=== PATIENT | male | born 1940 | race Caucasian/White ===

== ENCOUNTER → 2016-05-29 | Outpatient (CLI) | payer MEDICARE | LOC: PCVCCLINIC 13:00 | PROVIDERS: ATTEND Internal Medicine Cardiovascular Disease | DX: I10 Essential (primary) hypertension (principal); R55 Syncope and collapse; I48.91 Unspecified atrial fibrillation; I25.10 Atherosclerotic heart disease of native coronary artery without angina pectoris; E78.00 Pure hypercholesterolemia, unspecified | CPT/HCPCS: 93005; G0463 ==

== ENCOUNTER → 2016-12-15 | Outpatient (CLI) | payer MEDICARE | END | disposition home or self-care (01) | LOC: PCVCCLINIC 13:07 | PROVIDERS: ATTEND Internal Medicine Cardiovascular Disease | DX: I45.10 Unspecified right bundle-branch block (principal); I25.10 Atherosclerotic heart disease of native coronary artery without angina pectoris; E78.00 Pure hypercholesterolemia, unspecified; I10 Essential (primary) hypertension; I77.89 Other specified disorders of arteries and arterioles; K21.9 Gastro-esophageal reflux disease without esophagitis; E78.5 Hyperlipidemia, unspecified; I48.0 Paroxysmal atrial fibrillation; Z96.651 Presence of right artificial knee joint; Z87.891 Personal history of nicotine dependence; Z79.82 Long term (current) use of aspirin; Z88.8 Allergy status to other drugs, medicaments and biological substances | CPT/HCPCS: 93005; G0463 ==

== ENCOUNTER → 2016-12-17 | Outpatient (CLI) | payer MEDICARE ==
--- NOTE | 2016-12-17 13:21 | PCVCIMAG ---
APPROVED REPORT Exam: Stress Echocardiogram Indication: Afilb, Hypertension, Hyperlipidemia Stress Nurse: Alice Vargas RN Status: routine HR: 85 bpm Rhythm: NSR Procedure The patient underwent an Exercise Stress Test using the Luis Protocol. Blood pressure, heart rate, and EKG were monitored. An Echocardiogram was performed by instrumentation and control technician in four stages in quad fashion. At peak stress, four selected images were obtained and placed side by side with resting images for comparison. Stress Test Details Stress Test: Exercise stress testing was performed using a Luis protocol. HR Resting HR: 85 bpmMax Heart Rate (APMHR): 145 bpm Max HR Achieved: 164 bpmTarget HR (85% APMHR): 123 bpm % of APMHR: 113 HR response to stress: Normal HR response to stress BP Resting BP: 85/ mmHg Max BP: 178/92 mmHg ECG Resting ECG: Atrial Fibrillation Stress ECG: Atrial Fibrillation Recovery ECG: Atrial Fibrillation Clinical Reason for Termination: Maximal effort Exercise duration: 6 min 57 sec Highest Stage Achieved: Stage 2: 2.5 mph at 12% grade. Exercise capacity: 9.90 METs Pre-Stress Echo The resting Echocardiogram showed normal left ventricular contractility with an estimated Ejection Fraction of about 50-55%. Normal wall motion in all segments on baseline images. Post-Stress Echo The stress Echocardiogram showed normal left ventricular contractility with an estimated Ejection Fraction of about >55%. Normal augmentation of wall motion in all segments on post stress images. Conclusion Clinical Response: Non-ischemic Exercise Capacity: Average Stress ECG Response: Indeterminant Stress Echo Images: Non-ischemic The left ventricle is normal in size and wall thickness in both the rest and stress images. No clinical, EKG or echocardiographic evidence for ischemia. Normal stress echocardiogram with maximal exercise stress. Other Information Study Quality: Technically Limited <Conclusion> The left ventricle is normal in size and wall thickness in both the rest and stress images. No clinical, EKG or echocardiographic evidence for ischemia. Normal stress echocardiogram with maximal exercise stress.
== END | disposition home or self-care (01) ==
LOC: PCVCIMAG 11:11
PROVIDERS: ATTEND Internal Medicine Cardiovascular Disease
DX: I48.91 Unspecified atrial fibrillation (principal); I25.10 Atherosclerotic heart disease of native coronary artery without angina pectoris; I10 Essential (primary) hypertension; E78.5 Hyperlipidemia, unspecified; E78.00 Pure hypercholesterolemia, unspecified; I77.89 Other specified disorders of arteries and arterioles
CPT/HCPCS: 93325; 93351

== ENCOUNTER → 2017-06-07 | Outpatient (CLI) | payer MEDICARE | END | disposition home or self-care (01) | LOC: PCVCCLINIC 15:35 | DX: Z51.81 Encounter for therapeutic drug level monitoring (principal); I48.2 Chronic atrial fibrillation; I25.10 Atherosclerotic heart disease of native coronary artery without angina pectoris; I10 Essential (primary) hypertension; E78.00 Pure hypercholesterolemia, unspecified; Z87.891 Personal history of nicotine dependence; Z79.82 Long term (current) use of aspirin; Z79.899 Other long term (current) drug therapy | CPT/HCPCS: 93005; G0463 ==

== ENCOUNTER → 2017-07-19 | Outpatient (CLI) | payer MEDICARE | END | disposition home or self-care (01) | LOC: PCVCCLINIC 14:21 | DX: I48.2 Chronic atrial fibrillation (principal); I10 Essential (primary) hypertension; I25.10 Atherosclerotic heart disease of native coronary artery without angina pectoris; G47.33 Obstructive sleep apnea (adult) (pediatric); Z87.891 Personal history of nicotine dependence; Z79.899 Other long term (current) drug therapy; Z79.82 Long term (current) use of aspirin | CPT/HCPCS: 93005; G0463 ==

== ENCOUNTER → 2017-11-25 | Outpatient (CLI) | payer MEDICARE | END | disposition home or self-care (01) | LOC: PCVCCLINIC 14:30 | DX: I48.2 Chronic atrial fibrillation (principal); I10 Essential (primary) hypertension; G47.33 Obstructive sleep apnea (adult) (pediatric); I77.9 Disorder of arteries and arterioles, unspecified; R53.83 Other fatigue; R93.1 Abnormal findings on diagnostic imaging of heart and coronary circulation; R94.31 Abnormal electrocardiogram [ECG] [EKG]; Z87.891 Personal history of nicotine dependence; Z88.8 Allergy status to other drugs, medicaments and biological substances; Z79.01 Long term (current) use of anticoagulants; Z79.82 Long term (current) use of aspirin | CPT/HCPCS: 80061; 93005; G0463 ==

== ENCOUNTER → 2017-11-29 | Outpatient (CLI) | payer MEDICARE | END | disposition home or self-care (01) | LOC: PCVCIMAG 16:24 | DX: I48.91 Unspecified atrial fibrillation (principal); I10 Essential (primary) hypertension; E83.59 Other disorders of calcium metabolism | CPT/HCPCS: 93325; 93351 ==

== ENCOUNTER → 2018-06-01 | Outpatient (CLI) | payer MEDICARE | END | disposition home or self-care (01) | LOC: PCVCCLINIC 11:42 | PROVIDERS: ATTEND Internal Medicine Cardiovascular Disease | DX: I48.2 Chronic atrial fibrillation (principal); I25.10 Atherosclerotic heart disease of native coronary artery without angina pectoris; I77.9 Disorder of arteries and arterioles, unspecified; E78.00 Pure hypercholesterolemia, unspecified; I10 Essential (primary) hypertension; K21.9 Gastro-esophageal reflux disease without esophagitis; G47.33 Obstructive sleep apnea (adult) (pediatric); E78.5 Hyperlipidemia, unspecified; Z87.891 Personal history of nicotine dependence; Z88.8 Allergy status to other drugs, medicaments and biological substances | CPT/HCPCS: 93005; G0463 ==

== ENCOUNTER → 2018-06-27 | Outpatient (CLI) | payer MEDICARE | END | disposition home or self-care (01) | LOC: PCVCCLINIC 10:27 | PROVIDERS: ATTEND Internal Medicine Cardiovascular Disease | DX: I48.2 Chronic atrial fibrillation (principal); I10 Essential (primary) hypertension; E78.00 Pure hypercholesterolemia, unspecified; I77.9 Disorder of arteries and arterioles, unspecified; I25.10 Atherosclerotic heart disease of native coronary artery without angina pectoris; G47.33 Obstructive sleep apnea (adult) (pediatric); R94.31 Abnormal electrocardiogram [ECG] [EKG]; Z79.01 Long term (current) use of anticoagulants; Z79.82 Long term (current) use of aspirin | CPT/HCPCS: 93005; G0463 ==

== ENCOUNTER → 2018-06-27 | Outpatient (CLI) | payer MEDICARE ==
--- NOTE | 2018-06-27 13:18 | PCVCIMAG ---
APPROVED REPORT Study performed: 06/27/2018 10:49:27 EXAM: Limited 2D, Doppler, and color-flow Echocardiogram Patient Location: Echo lab Status: routine BSA: 2.35 HR: 72 bpmBP: 138/88 mmHg Rhythm: Atrial Fibrillation Indications Atrial Fibrillation Dyspnea assess right side volume and PAP 2D Dimensions IVSd: 16.87 (7-11mm) LVDd: 44.65 mm PWd: 12.92 (7-11mm) LVDs: 31.73 (25-40mm) Tricuspid Valve TR Peak Ruperto.: 3.61 m/s TR Peak Gr.: 52.22 mmHg Left Ventricle The left ventricle is normal size. There is normal LV segmental wall motion. Moderate concentric left ventricular hypertrophy. The left ventricular systolic function is normal. The left ventricular ejection fraction is within the normal range. LVEF is 55%. This study is not technically sufficient to allow evaluation of the LV diastolic function due to atrial fibrillation. Right Ventricle Right ventricle is borderline dilated. The right ventricular systolic function is normal. Atria Left atrium is severely dilated. Right atrium is severely dilated. Aortic Valve Mild aortic valve sclerosis. Trace aortic regurgitation. There is no aortic valvular stenosis. Mitral Valve The mitral valve is normal in structure. Moderate mitral regurgitation. No evidence of mitral valve stenosis. Tricuspid Valve The tricuspid valve is normal in structure. Moderate tricuspid regurgitation with PAP of 62 mmHg. Pulmonic Valve The pulmonary valve is normal in structure. There is no pulmonic valvular regurgitation. Great Vessels The aortic root is normal in size. IVC is normal in size and collapses <50% with inspiration. Pericardium There is no pericardial effusion. There is no pleural effusion. <Conclusion> The left ventricle is normal size. LVEF is 55%. This study is not technically sufficient to allow evaluation of the LV diastolic function due to atrial fibrillation. Right ventricle is borderline dilated. The right ventricular systolic function is normal. Left atrium is severely dilated. Right atrium is severely dilated. Mild aortic valve sclerosis. Trace aortic regurgitation. Moderate mitral regurgitation. Moderate tricuspid regurgitation with PAP of 62 mmHg. The aortic root is normal in size. There is no pericardial effusion. There is no pleural effusion.
== END | disposition home or self-care (01) ==
LOC: PCVCIMAG 10:48
PROVIDERS: ATTEND Internal Medicine Cardiovascular Disease
DX: I08.3 Combined rheumatic disorders of mitral, aortic and tricuspid valves (principal); I25.10 Atherosclerotic heart disease of native coronary artery without angina pectoris; I48.2 Chronic atrial fibrillation; I77.9 Disorder of arteries and arterioles, unspecified; I10 Essential (primary) hypertension; G47.33 Obstructive sleep apnea (adult) (pediatric); E78.00 Pure hypercholesterolemia, unspecified; R06.02 Shortness of breath; R60.9 Edema, unspecified; K21.9 Gastro-esophageal reflux disease without esophagitis; Z79.01 Long term (current) use of anticoagulants; Z79.82 Long term (current) use of aspirin; Z87.891 Personal history of nicotine dependence
CPT/HCPCS: 93005; 93308; G0463

== ENCOUNTER → 2018-09-20 | Outpatient (CLI) | payer MEDICARE ==
--- NOTE | 2018-09-20 09:08 | PCVCIMAG ---
EXAM: BILATERAL LOWER EXTREMITY ARTERIAL DUPLEX INDICATION: Peripheral Arterial Disease. Leg pain. FINDINGS: Right Leg: Common femoral and profunda femoral arteries are patent. Superficial femoral artery and popliteal artery are patent. Anterior and posterior tibial arteries are patent. Occlusion of the distal peroneal artery. Left Leg: Satisfactory arterial waveforms throughout the common/profunda/superficial femoral, popliteal, anterior tibial, peroneal, and posterior tibial arteries. No flow limiting stenosis seen. 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 Otherwise no flow limiting stenosis in the right lower extremity. No flow limiting stenosis in the left lower extremity. LOC:[id number]
== END | disposition home or self-care (01) ==
LOC: PCVCIMAG 10:16
PROVIDERS: ATTEND Internal Medicine Cardiovascular Disease
DX: I73.9 Peripheral vascular disease, unspecified (principal)
CPT/HCPCS: 93925

== ENCOUNTER → 2018-12-12 | Outpatient (CLI) | payer MEDICARE ==
--- NOTE | 2018-12-12 11:47 | PCVCIMAG ---
EXAM: BILATERAL RENAL ULTRASOUND AND BILATERAL RENAL DUPLEX INDICATION: Hypertension FINDINGS: Right kidney: Length measures 12.7 cm. No hydronephrosis or extensive renal scarring. Right renal duplex: Adequate technical quality. No sonographic evidence of renal artery stenosis. The aortic to renal artery ratio is 0.5. The renal vein is patent. Left kidney: Length measures 12.1 cm. No hydronephrosis or extensive renal scarring. Left renal duplex: Adequate technical quality. No sonographic evidence of renal artery stenosis. The aortic to renal artery ratio is 0.7. The renal vein is patent. Bladder: No obvious abnormalities. IMPRESSION: No significant renal artery stenosis. No hydronephrosis bilaterally. LOC:[id number]
--- NOTE | 2018-12-12 13:09 | PCVCIMAG ---
APPROVED REPORT Study performed: 12/12/2018 10:49:56 Exam: Stress Echocardiogram Indication: Atrial Fibrillation, mild-moderate cad, dyspnea Patient Location: Echo lab Stress Nurse: Kathy Sotelo RN Status: routine Ht: 6 ft 0 in HR: 100 bpm BP: 136/92 mmHg Rhythm: Atrial Fibrillation Procedure The patient underwent an Exercise Stress Test using the Luis Protocol. Blood pressure, heart rate, and EKG were monitored. An Echocardiogram was performed by master automotive glass technician in four stages in quad fashion. At peak stress, four selected images were obtained and placed side by side with resting images for comparison. Stress Test Details Stress Test: Exercise stress testing was performed using a Luis protocol. HR Resting HR: 100 bpmMax Heart Rate (APMHR): 143 bpm Max HR Achieved: 139 bpmTarget HR (85% APMHR): 121 bpm % of APMHR: 97 Recovery HR: 108 bpm HR response to stress: Normal HR response to stress BP Resting BP: 136/92 mmHg Max BP: 162/88 mmHg Recovery BP: 150/88 mmHg BP response to stress: Normal blood pressure response to stress. ECG Resting ECG: Atrial Fibrillation Stress ECG: Atrial Fibrillation ST Change: Normal Arrhythmia: Atrial fibrillation Recovery ECG: Atrial Fibrillation Recovery ST Change: Normal Recovery Arrhythmia: Atrial Fibrillation Clinical Reason for Termination: Dyspnea, Maximal effort Stress Symptoms: Dyspnea Exercise duration: 3 min 33 sec Highest Stage Achieved: Stage 2: 2.5 mph at 12% grade. Exercise capacity: 5.9 METs Overall Exercise Capacity for Age: Poor Scale: Active Angina Score: None Pre-Stress Echo The resting Echocardiogram showed normal left ventricular contractility with an estimated Ejection Fraction of about 50-55%. Normal wall motion in all segments on baseline images. Post-Stress Echo The stress Echocardiogram showed normal left ventricular contractility with an estimated Ejection Fraction of about 60-65%. Normal augmentation of wall motion in all segments on post stress images. Clinical No clinical or ECG evidence for ischemia. Conclusion Clinical Response: Non-ischemic Exercise Capacity: Below Average Stress ECG Response: Equivocal- permanent a fib Stress Echo Images: Non-ischemic The left ventricle is normal in size and wall thickness in both the rest and stress images. Other Information Study Quality: Adequate <Conclusion> The left ventricle is normal in size and wall thickness in both the rest and stress images.
== END ==
LOC: PCVCINTER 10:20
PROVIDERS: ATTEND Internal Medicine Cardiovascular Disease
DX: I48.91 Unspecified atrial fibrillation (principal); I25.10 Atherosclerotic heart disease of native coronary artery without angina pectoris; I10 Essential (primary) hypertension
CPT/HCPCS: 76770; 93325; 93351; 93975

== ENCOUNTER → 2019-01-25 | Outpatient (CLI) | payer MEDICARE | END | disposition home or self-care (01) | LOC: PCVCCLINIC 13:15 | PROVIDERS: ATTEND Nurse Practitioner Adult Health | DX: I25.10 Atherosclerotic heart disease of native coronary artery without angina pectoris (principal); G47.33 Obstructive sleep apnea (adult) (pediatric); I48.2 Chronic atrial fibrillation; I77.9 Disorder of arteries and arterioles, unspecified; I10 Essential (primary) hypertension; E78.00 Pure hypercholesterolemia, unspecified; K21.9 Gastro-esophageal reflux disease without esophagitis; Z79.01 Long term (current) use of anticoagulants; Z88.8 Allergy status to other drugs, medicaments and biological substances; Z87.891 Personal history of nicotine dependence; Z79.82 Long term (current) use of aspirin; Z79.899 Other long term (current) drug therapy | CPT/HCPCS: 36415; 93005; G0463 ==

== ENCOUNTER → 2019-05-03 | Outpatient (CLI) | payer MEDICARE ==
--- NOTE | 2019-05-03 17:32 | PCVCIMAG ---
APPROVED REPORT Study performed: 05/03/2019 16:14:32 EXAM: Comprehensive 2D, Doppler, and color-flow Echocardiogram Patient Location: Echo lab Room #: 2Status: routine BSA: 2.31 HR: 102 bpmBP: 160/78 mmHg Rhythm: Atrial Fibrillation Other Information Study Quality: Adequate Risk Factors: Cardiac Risk Factors: HTN Indications Atrial Fibrillation Dyspnea Chest Pain 2D Dimensions IVSd: 11.72 (7-11mm)LVOT Diam: 19.89 (18-24mm) LVDd: 46.90 mm PWd: 8.94 (7-11mm)Ascending Ao: 30.77 (22-36mm) LVDs: 28.88 (25-40mm) Left Atrium: 53.24 (27-40mm) Aortic Root: 23.65 mm LV Single Plane 4CH: 48.00 % LV Single Plane 2CH: 54.00 % Biplane EF: 50.0 % Volumes Left Atrial Volume (Systole) Single Plane 4CH: 103.20 mLSingle Plane 2CH: 99.79 mL Biplane LA Volume: 106.00 mLLA ESV Index: 46.00 mL/m2 Aortic Valve AoV Peak Ruperto.: 1.30 m/s AO Peak Gr.: 7.26 mmHgLVOT Max P.56 mmHg LVOT Max V: 0.90 m/s ROSALVA Vmax: 2.15 cm2 Mitral Valve MV Peak Gr.: 4.09 mmHg MV Mean Gr.: 1.46 mmHg MV E Max Ruperto.: 0.95 m/s MV Max Ruperto.: 1.01 m/s MV Mean Ruperto.: 0.50 m/s MV VTI: 103.16 mm MV PHT: 32.40 ms MVA (PHT): 7.25 cm2 IVRT: 48.44 ms Pulmonary Valve PV Peak Ruperto.: 0.92 m/sPV Peak Gr.: 3.41 mmHg Tricuspid Valve TR Peak Ruperto.: 3.15 m/s TR Peak Gr.: 39.76 mmHg TV Vmax: 0.72 m/sPA Pressure: 50.00 mmHg Left Ventricle The left ventricle is normal size. There is normal LV segmental wall motion. Moderate basal septal hypertrophy is present. The overall left ventricular systolic function appears normal. LVEF is 50-55%. This study is not technically sufficient to allow evaluation of the LV diastolic function due to atrial fibrillation. Right Ventricle The right ventricle is normal size. The right ventricular systolic function is normal. Atria Left atrium is moderately dilated. Right atrium is severely dilated. Aortic Valve Aortic valve is trileaflet. Aortic valve leafletst open well. No aortic regurgitation is present. There is no aortic valvular stenosis. Mitral Valve The mitral valve is normal in structure. Moderate to severe mitral regurgitation No evidence of mitral valve stenosis. Tricuspid Valve The tricuspid valve is normal in structure. Severe tricuspid regurgitation with a PA pressure of 50 mmHg. Moderate pulmonary hypertension. Pulmonic Valve The pulmonary valve is normal in structure. There is no pulmonic valvular regurgitation. Great Vessels The aortic root is normal in size. The ascending aorta is normal in size. IVC is normal in size and collapses <50% with inspiration. Pericardium There is no pericardial effusion. There is no pleural effusion. <Conclusion> The left ventricle is normal size. Moderate basal septal hypertrophy is present. LVEF is 50-55%. This study is not technically sufficient to allow evaluation of the LV diastolic function due to atrial fibrillation. The right ventricle is normal size. Left atrium is moderately dilated. Right atrium is severely dilated. Aortic valve is trileaflet. Aortic valve leafletst open well. Moderate to severe mitral regurgitation Moderate to severe mitral regurgitation Severe tricuspid regurgitation with a PA pressure of 50 mmHg. Moderate pulmonary hypertension. The aortic root is normal in size. There is no pericardial effusion.
== END | disposition home or self-care (01) ==
LOC: PCVCIMAG 15:30
PROVIDERS: ATTEND Internal Medicine Cardiovascular Disease
DX: I08.1 Rheumatic disorders of both mitral and tricuspid valves (principal); I27.20 Pulmonary hypertension, unspecified; I48.21 Permanent atrial fibrillation; I25.10 Atherosclerotic heart disease of native coronary artery without angina pectoris; I65.23 Occlusion and stenosis of bilateral carotid arteries; E78.00 Pure hypercholesterolemia, unspecified; I10 Essential (primary) hypertension; R07.9 Chest pain, unspecified; I30.0 Acute nonspecific idiopathic pericarditis; E78.5 Hyperlipidemia, unspecified; K21.9 Gastro-esophageal reflux disease without esophagitis; Z87.891 Personal history of nicotine dependence; Z79.01 Long term (current) use of anticoagulants; Z88.8 Allergy status to other drugs, medicaments and biological substances; Z72.89 Other problems related to lifestyle; Z79.899 Other long term (current) drug therapy; Z79.82 Long term (current) use of aspirin
CPT/HCPCS: 93005; 93306; G0463

== ENCOUNTER → 2019-05-16 | Outpatient (CLI) | payer MEDICARE | END | disposition home or self-care (01) | LOC: PCVCCLINIC 11:00 | PROVIDERS: ATTEND Internal Medicine Cardiovascular Disease | DX: I25.10 Atherosclerotic heart disease of native coronary artery without angina pectoris (principal); R07.9 Chest pain, unspecified; E78.00 Pure hypercholesterolemia, unspecified; R06.02 Shortness of breath; R53.83 Other fatigue; I48.21 Permanent atrial fibrillation; I65.23 Occlusion and stenosis of bilateral carotid arteries; K21.9 Gastro-esophageal reflux disease without esophagitis; I38 Endocarditis, valve unspecified; E78.5 Hyperlipidemia, unspecified; R94.31 Abnormal electrocardiogram [ECG] [EKG]; I44.5 Left posterior fascicular block; I48.0 Paroxysmal atrial fibrillation; Z87.891 Personal history of nicotine dependence; Z79.82 Long term (current) use of aspirin; Z79.899 Other long term (current) drug therapy; Z79.01 Long term (current) use of anticoagulants; Z88.8 Allergy status to other drugs, medicaments and biological substances; Z72.89 Other problems related to lifestyle | CPT/HCPCS: 93005; G0463 ==